=== PATIENT | female | born 1950 | race Caucasian/White ===

== ENCOUNTER 2022-05-24 14:27 | Inpatient (IN) ==
[2022-05-24 16:26] LABS: Basophils % 0.2 %; Eosinophils # 0.1 K/mcL (0.0-0.6); Eosinophils % 1.5 %; Hematocrit 35.8 % (35.3-44.9); Hemoglobin 11.6 g/dL (11.5-15.4); Immature Granulocytes % 0.3 % (0-4); Lymphocytes # 0.7 K/mcL (0.6-4.6); Lymphocytes % 11.1 %; Mean Corpuscular HGB Conc 32.4 g/dL (31.6-35.5); Mean Corpuscular Hemoglobin 28.6 pg (28.0-33.3); Mean Corpuscular Volume 88.2 fL (83.0-100.0); Mean Platelet Volume 10.6 fL (9.4-12.4); Monocytes # 0.3 K/mcL (0.0-1.3); Monocytes % 4.5 %; Neutrophils # 4.9 K/mcL (1.6-8.9); Platelet Count 191 K/mcL (140-400); Red Blood Count 4.06 M/mcL (3.82-4.97); Red Cell Distribution Width 14.3 % (11.5-14.5); Segmented Neutrophils % 82.4 %
[2022-05-24 16:56] LABS: Calcium 8.8 mg/dL (8.6-10.3); Potassium 3.3 mEq/L (3.5-5.1); Troponin I 0.05 ng/mL (< 0.04)
[2022-05-24] MEDS ORDERED: Potassium Chloride Elixir 20 MEQ/15 ML UDC PO ONE (17:49)
[2022-05-24] MEDS ORDERED: Naloxone 0.4 MG/ML INJ IVP PRN (19:57)
[2022-05-24] MEDS ORDERED: Acetaminophen 325 MG TABLET PO PRN (21:52)
[2022-05-24 23:28] LABS: Bilirubin,Urine Negative (Negative); Blood,Urine Small (Negative); Clarity,Urine Clear (Clear); Color,Urine Yellow (Yellow); Glucose,Urine (UA) >=1000 mg/dL (Normal); Hyaline Casts,Urine Moderate per lpf (None Seen); Ketones,Urine Negative (Negative); Leukocyte Esterase,Urine Small (Negative); Mucus,Urine Few per lpf (None-Few); Nitrite,Urine Negative (Negative); Protein,Urine >=300 mg/dL (Neg-Trace); Specific Gravity,Urine 1.023 (1.010-1.025); Squamous Epithelial Cell,Urine Moderate per hpf (None-Few); Transitional Epi Cells,Urine Few per hpf (None-Few); Urobilinogen,Urine Normal (Normal); WBC,Urine 15-30 per hpf (0-3)
[2022-05-24 23:32] LABS: Amphetamine Screen,Urine Positive ng/mL (Cutoff=1000); Barbiturate Screen,Urine Negative ng/mL (Cutoff=200); Benzodiazepines Screen,Urine Negative ng/mL (Cutoff=200); Cannabinoid Screen,Urine Negative ng/mL (Cutoff = 50); Cocaine Screen,Urine Negative ng/mL (Cutoff= 300); Opiate Screen,Urine Negative ng/mL (Cutoff=300); Phencyclidine Screen,Urine Negative ng/mL (Cutoff=25)
[2022-05-25] MEDS ORDERED: D5% in Water 1,000 ML IVC PRN (02:14)
[2022-05-25] MEDS ORDERED: Dextrose Gel 15 GM/37.5 ML TUBE PO PRN ×2 (02:14)
[2022-05-25] MEDS: Insulin LISPRO 300 UNITS/3 ML VIAL SUBQ SCH ×3 (05:45→16:43)
[2022-05-25] MEDS: *HR* Heparin 5,000 UNIT/ML VIAL SQ SCH ×3 (05:48→20:18)
[2022-05-25 05:59] LABS: Basophils % 0.2 %; Eosinophils # 0.1 K/mcL (0.0-0.6); Eosinophils % 2.6 %; Hematocrit 30.9 % (35.3-44.9); Hemoglobin 10.1 g/dL (11.5-15.4); Immature Granulocytes % 0.4 % (0-4); Lymphocytes # 0.8 K/mcL (0.6-4.6); Lymphocytes % 18.2 %; Mean Corpuscular HGB Conc 32.7 g/dL (31.6-35.5); Mean Corpuscular Hemoglobin 29.2 pg (28.0-33.3); Mean Corpuscular Volume 89.3 fL (83.0-100.0); Mean Platelet Volume 10.6 fL (9.4-12.4); Monocytes # 0.3 K/mcL (0.0-1.3); Neutrophils # 3.3 K/mcL (1.6-8.9); Platelet Count 181 K/mcL (140-400); Red Blood Count 3.46 M/mcL (3.82-4.97); Red Cell Distribution Width 14.6 % (11.5-14.5); Segmented Neutrophils % 71.6 %; White Blood Count 4.6 K/mcL (4.3-11.1)
[2022-05-25 06:06] LABS: INR 1.3; Prothrombin Time 14.9 Seconds (9.4-12.1)
[2022-05-25 06:26] LABS: Calcium 8.1 mg/dL (8.6-10.3); Magnesium 1.2 mg/dL (1.6-2.6); Phosphorous 3.2 mg/dL (2.7-4.5); Potassium 3.1 mEq/L (3.5-5.1); Troponin I 0.06 ng/mL (< 0.04)
[2022-05-25] MEDS ORDERED: Insulin DETEMIR 100 UNIT/ML X5UNITS SUBQ SCH ×2 (06:45→21:00)
[2022-05-25] MEDS: Magnesium Oxide 400 MG TABLET PO SCH (08:48)
[2022-05-25] MEDS ORDERED: Furosemide 40 MG/4 ML VIAL IVP SCH (09:00)
[2022-05-25 15:53] LABS: Magnesium 1.2 mg/dL (1.6-2.6); Potassium 4.4 mEq/L (3.5-5.1)
[2022-05-25 16:43] LABS: Estimated Average Glucose 255 mg/dl; Hemoglobin A1C 10.5 %
[2022-05-25] MEDS: carvediloL 6.25 MG TABLET PO SCH (16:43)
[2022-05-26] MEDS: Insulin LISPRO 300 UNITS/3 ML VIAL SUBQ SCH ×4 (00:01→17:43)
[2022-05-26] MEDS: *HR* Dextrose 50 % in Water (Syg) 50 ML SYRINGE IVP PRN ×2 (03:09→04:31)
[2022-05-26] MEDS: *HR* Heparin 5,000 UNIT/ML VIAL SQ SCH ×3 (05:19→20:16)
[2022-05-26] MEDS: Magnesium Oxide 400 MG TABLET PO SCH (07:35)
[2022-05-26] MEDS: carvediloL 6.25 MG TABLET PO SCH (07:35)
[2022-05-26] MEDS ORDERED: Aspirin Enteric Coated 81 MG Tablet PO SCH (09:00)
[2022-05-26] MEDS ORDERED: Torsemide 20 MG TABLET PO SCH (09:00)
[2022-05-26] MEDS ORDERED: BuPROPion XL (24 HR) 150 MG TABLET PO SCH (09:00)
[2022-05-26] MEDS: Sacubitril/Valsartan 24/26 MG 1 TABLET PO SCH ×2 (11:31→20:16)
[2022-05-26] MEDS ORDERED: carvediloL 25 MG TABLET PO SCH (17:00)
[2022-05-26 19:36] VITALS: BP 131/76; PULSE 84; TEMP 97.6; O2SAT 98
[2022-05-26] MEDS ORDERED: Insulin DETEMIR 100 UNIT/ML X5UNITS SUBQ SCH (21:00)
== END 2022-05-26 23:59 | disposition other institution (70) | DRG 280 ==
LOC: 3BNU 14:27 → EMEROOARM 14:27 → SUATTDRO 19:43 → 3BNU 20:31
PROVIDERS: ADMIT Internal Medicine; ATTEND Internal Medicine